=== PATIENT | female | born 1950 | race African-American/Black ===

== ENCOUNTER 2017-12-06 16:45 | Emergency (ER) | payer OTHER ==
[~2017-12-06] VITALS: Ht 160 cm; Wt 81.2 kg
[~2017-12-06 16:45] MED LIST: ASPI-1152 PO; BRIN10DR EACHEYE; CARI350T PO; CHOL100044 PO; FERR325T24 PO; HYDR-3976 PO; IBUP-1957 PO; ISOS60TA4 PO; LATA2.5D2 EACHEYE; LEVO88TA5 PO; METF850T2 PO; METO25TA20 PO; SIMV40TA2 PO; TRIA1TAB98 PO
--- NOTE | 2017-12-06 17:00 | NUR ---
EPIGASTRIC PAIN SINCE 1329 ASSOCIATED WITH NAUSEA AND TENDERNESS, TO EPIGASTRIUM NAD NOTED, VSS, RESP EVEN AND UNLABORED PT WAS PUT ON MONITOR. WAITING FOR MD WOLF.
[2017-12-06] MEDS ORDERED: MAG HYDROX/AL HYDROX/SIMETH 30 ML UDC ONE (17:30)
[2017-12-06] MEDS ORDERED: FAMOTIDINE (20 MG) 20 MG TABLET PO ONE (17:30)
[2017-12-06] MEDS ORDERED: MAG HYDROX/AL HYDROX/SIMETH 30 ML UDC PO ONE (17:30)
[2017-12-06] MEDS ORDERED: FAMOTIDINE (20 MG) 20 MG TABLET ONE (17:31)
[2017-12-06 17:50] LABS: BASOPHILS % (AUTO) 0.2 % (0.0-2.0); EOSINOPHILS % (AUTO) 0.1 % (0.0-6.0); HEMATOCRIT 34 % (33-45); HEMOGLOBIN 11.1 g/dL (11.5-14.8); LYMPHOCYTES # (AUTO) 0.3 /CMM (0.8-4.8); LYMPHOCYTES % (AUTO) 8.8 % (20.0-44.0); MEAN CORPUSCULAR HEMOGLOBIN 31 PG (26.0-33.0); MEAN CORPUSCULAR HGB CONC 33 g/dl (31.0-36.0); MEAN CORPUSCULAR VOLUME 93 fL (82-100); MONOCYTES # (AUTO) 0.1 /CMM (0.1-1.30); MONOCYTES % (AUTO) 3.5 % (2.0-12.0); NEUTROPHILS % (AUTO) 87.4 % (43.0-81.0); PLATELET COUNT (AUTO) 152 /CMM (150-450); RDW COEFFICIENT OF VARIATION 12.6 (11.5-15.0); RED BLOOD CELL COUNT(AUTO) 3.61 MIL/uL (4.0-5.2); WHITE BLOOD COUNT (AUTO) 3.4 K/uL (4.3-11.0)
[2017-12-06 17:59] LABS: CALCIUM, SERUM 8.8 mg/dL (8.5-10.1); CARBON DIOXIDE 27 mmol/L (21-32); CHLORIDE 101 mmol/L (98-107); CREATININE 1.2 mg/dL (0.6-1.3); GLUCOSE 155 mg/dL (74-106); POTASSIUM 3.9 mmol/L (3.5-5.1); SODIUM SERUM 137 mmol/L (136-145); UREA NITROGEN, BLOOD 13 mg/dL (7-18)
[2017-12-06 18:06] LABS: ALANINE AMINOTRANSFERASE 161 U/L (12-78); ALBUMIN 3.3 g/dL (3.4-5.0); ALKALINE PHOSPHATASE 295 U/L (46-116); ASPARTATE AMINOTRANSFERASE 303 U/L (15-37); BILIRUBIN,DIRECT 0.6 mg/dL (0.0-0.2); BILIRUBIN,TOTAL 0.9 mg/dL (0.2-1.0); TOTAL PROTEIN, SERUM 7.5 g/dL (6.4-8.2); TROPONIN I < 0.017 ng/mL (0.00-0.056)
--- NOTE | 2017-12-06 19:08 | NUR ---
REPORT RECEIVED FROM WARREN ROGERS FOR [facility].
--- NOTE | 2017-12-06 22:10 | NUR ---
IV removed. Catheter intact and site benign. Pressure and 4x4 applied to site. No bleeding noted. Patient discharged to home in stable condition. Written and verbal after care instructions given. Patient verbalizes understanding of instruction. Patient ambulatory with a steady gait.
[2017-12-06 22:11] VITALS: BP 105/60
== END 2017-12-06 22:12 | disposition home or self-care (01) ==
LOC: ER 16:50
DX: R10.13 Epigastric pain (principal); I10 Essential (primary) hypertension; E78.00 Pure hypercholesterolemia, unspecified; E11.9 Type 2 diabetes mellitus without complications; Z86.74 Personal history of sudden cardiac arrest; Z79.82 Long term (current) use of aspirin
CPT/HCPCS: 36415; 80048-TC; 80076-TC; 83690-TC; 84484-TC; 85025-TC; A4606; Z7610

== ENCOUNTER 2021-07-08 01:04 | Emergency (ER) | payer OTHER ==
[~2021-07-08] VITALS: Ht 160 cm; Wt 93.0 kg
[~2021-07-08 01:04] MED LIST changes: -ASPI-1152 PO; +ASPI-1420 PO; -ISOS60TA4 PO; +ISOS60TA72 PO; +METF-441 PO; -METF850T2 PO
--- NOTE | 2021-07-08 01:19 | NUR ---
PT BIBS FROM HOME C/O LOWER AND MID STERNAL CHEST PAIN X 2330 NON RADIATING. WINDOW FRAMER PT TOOK BABY ASPIRIN WITH MILD RELIEF. PT A/OX4. TOLERATING R/A WELL WITH NO SOB. CONNECTED PT TO POX AND MONITOR.
--- NOTE | 2021-07-08 01:30 | NUR ---
LAC #18G S/L; PATENT AND INTACT. BLOOD COLLECTED AND SENT TO LAB
--- NOTE | 2021-07-08 01:38 | NUR ---
SANDER HAND AT PT'S BEDSIDE
[2021-07-08] MEDS ORDERED: ONDANSETRON HCL/PF 4 MG/2 ML VIAL ONE (02:16)
[2021-07-08] MEDS ORDERED: MORPHINE SULFATE INJ 2 MG/ML DISP.SYRIN ONE (02:16)
[2021-07-08] MEDS ORDERED: FAMOTIDINE/PF INJ 20 MG/2 ML VIAL IV ONE ×2 (02:17→02:30)
--- NOTE | 2021-07-08 02:24 | NUR ---
PT TAKEN TO CT VIA CATIA
[2021-07-08] MEDS ORDERED: MORPHINE SULFATE INJ 2 MG/ML DISP.SYRIN IV ONE ×2 (02:30→06:30)
[2021-07-08] MEDS ORDERED: ONDANSETRON HCL/PF 4 MG/2 ML VIAL IV ONE (02:30)
--- NOTE | 2021-07-08 03:08 | NUR ---
REGROOVER AT PT'S BEDSIDE
[2021-07-08 03:39] LABS: CALCIUM, SERUM 7.9 mg/dL (8.5-10.1); CARBON DIOXIDE 28 mmol/L (21-32); CHLORIDE 100 mmol/L (98-107); CREATININE 1.2 mg/dL (0.6-1.3); GLUCOSE 118 mg/dL (74-106); POTASSIUM 4.7 mmol/L (3.5-5.1); SODIUM SERUM 134 mmol/L (136-145); UREA NITROGEN, BLOOD 20 mg/dL (7-18)
[2021-07-08 03:48] LABS: BASOPHILS % (AUTO) 0.4 % (0.0-2.0); HEMATOCRIT 29 % (33-45); HEMOGLOBIN 9.8 g/dL (11.5-14.8); LYMPHOCYTES # (AUTO) 0.9 K/uL (0.8-4.8); LYMPHOCYTES % (AUTO) 18.4 % (20.0-44.0); MEAN CORPUSCULAR HGB CONC 34 g/dl (31.0-36.0); MEAN CORPUSCULAR VOLUME 94 fL (82-100); MONOCYTES # (AUTO) 0.3 K/uL (0.1-1.30); MONOCYTES % (AUTO) 6.7 % (2.0-12.0); NEUTROPHILS # (AUTO) 3.6 K/uL (1.8-8.9); NEUTROPHILS % (AUTO) 74.5 % (43.0-81.0); PLATELET COUNT (AUTO) 163 K/uL (150-450); RED BLOOD CELL COUNT(AUTO) 3.11 MIL/uL (4.0-5.2); WHITE BLOOD COUNT (AUTO) 4.8 K/uL (4.3-11.0)
--- NOTE | 2021-07-08 04:28 | NUR ---
RAG WILLOW OPERATOR AT PT'S BEDSIDE
[2021-07-08] MEDS ORDERED: IV NS 0.9% 1,000 ML IV ONE (05:30)
[2021-07-08] MEDS ORDERED: MORPHINE SULFATE INJ 4 MG/ML DISP.SYRIN ONE (06:09)
[2021-07-08] MEDS ORDERED: CEFTRIAXONE 1GM BAG (ER ONLY) 1 GM/50 ML PIGGYBACK IV ONE (07:00)
[2021-07-08] MEDS ORDERED: METRONIDAZOLE 500MG/ NS 100ML 500 MG in PREMIX 1 EA IV SCH (07:00)
[2021-07-08] MEDS ORDERED: CEFTRIAXONE 1GM BAG (ER ONLY) 50 ML IV ONE (07:21)
[2021-07-08] MEDS ORDERED: METRONIDAZOLE 500MG/ NS 100ML 100 ML IV ONE (07:21)
--- NOTE | 2021-07-08 07:55 | NUR ---
SPOKED TO [facility] CONTROL ROOM HELPER. PT IS ACCEPTED AT [facility]. WAITING FOR COVID TEST FOR PT TRANSFER INFO.
[2021-07-08 09:02] LABS: ALBUMIN 3.6 g/dL (3.4-5.0); BILIRUBIN,DIRECT 0.1 mg/dL (0.0-0.2); BILIRUBIN,TOTAL 0.2 mg/dL (0.2-1.0)
--- NOTE | 2021-07-08 09:59 | NUR ---
REFAXED CLINICALS TO [phone]
[2021-07-08 10:30] VITALS: BP 126/60
--- NOTE | 2021-07-08 10:50 | NUR ---
GOING TO [facility]. ACCEPTED BY DR SHERMAN GOING TO 1004.B NUMBER FOR REPORT [phone] [facility] ETA 1230
--- NOTE | 2021-07-08 11:15 | NUR ---
REPORT GIVEN TO TYSON KELLEY FOR [facility]
--- NOTE | 2021-07-08 11:44 | NUR ---
PICKED UP BY TRANSPORT IN STABLE CONDITION
== END 2021-07-08 11:44 | disposition short-term general hospital (02) ==
LOC: ER 01:05
DX: K80.50 Calculus of bile duct without cholangitis or cholecystitis without obstruction (principal); D53.9 Nutritional anemia, unspecified; R07.2 Precordial pain; E87.1 Hypo-osmolality and hyponatremia; Z79.84 Long term (current) use of oral hypoglycemic drugs; E11.9 Type 2 diabetes mellitus without complications; I25.10 Atherosclerotic heart disease of native coronary artery without angina pectoris; E03.9 Hypothyroidism, unspecified; Z79.890 Hormone replacement therapy; Z20.822 Contact with and (suspected) exposure to COVID-19; I10 Essential (primary) hypertension
CPT/HCPCS: 36415; 71045; 74176; 80048; 80076; 83690; 84484 ×2; 85025; 87426; 93005; 96361; 96365; 96367; 96375; 96376; 99285; A4216; J0696; J2270 ×2; J2405; J3490; J7030; C9803